=== PATIENT | male | born 1975 | race African-American/Black ===

== ENCOUNTER 2017-05-01 03:27 | Emergency (ER) | payer SELFPAY ==
[~2017-05-01] VITALS: Ht 175.3 cm; Wt 70.3 kg
[2017-05-01] MEDS ORDERED: PERCOCET 5/31 TABLET PO (05:01)
[2017-05-01] MEDS ORDERED: MOTRIN800 MG PO (05:01)
[2017-05-01 05:10] VITALS: BP 107/70
== END 2017-05-01 05:11 | disposition home or self-care (01) ==
LOC: EME 03:27
PROC: 3E0U3BZ Introduction of Anesthetic Agent into Joints, Percutaneous Approach (ICD-10-PCS; principal; 2017-05-01)
DX: S42.293A Other displaced fracture of upper end of unspecified humerus, initial encounter for closed fracture (principal); S42.142A Displaced fracture of glenoid cavity of scapula, left shoulder, initial encounter for closed fracture; W19.XXXA Unspecified fall, initial encounter; F17.200 Nicotine dependence, unspecified, uncomplicated
CPT/HCPCS: 73030; 73200; 99281; 99284

== ENCOUNTER 2017-05-03 18:03 | Emergency (ER) | payer SELFPAY ==
[~2017-05-03] VITALS: Ht 175.3 cm; Wt 70.4 kg
[~2017-05-03 18:03] MED LIST: MOTRIN800 MG PO; PERCOCET 5/31 TABLET PO
[2017-05-03] MEDS ORDERED: PERCOCET 10/1 TABLET PO (19:52)
[2017-05-03 20:40] VITALS: BP 166/107
== END 2017-05-03 20:42 | disposition home or self-care (01) ==
LOC: EME 18:03
PROC: 0RSKXZZ Reposition Left Shoulder Joint, External Approach (ICD-10-PCS; principal; 2017-05-03)
DX: S43.015A Anterior dislocation of left humerus, initial encounter (principal); X58.XXXA Exposure to other specified factors, initial encounter; F17.200 Nicotine dependence, unspecified, uncomplicated
CPT/HCPCS: 73020; 73030; 99281; 99284; J1885; J2270; J3010